=== PATIENT | female | born 1985 | race Hispanic/Latino ===

== ENCOUNTER 2022-01-03 09:34 | Emergency (ER) | payer OTHER, SELFPAY ==
[2022-01-03] MEDS ORDERED: Bacitracin 1 PK ONE (10:39)
== END 2022-01-03 10:58 | disposition home or self-care (01) ==
LOC: ERS 09:34
DX: T22.211A Burn of second degree of right forearm, initial encounter (principal); T31.0 Burns involving less than 10% of body surface; X11.0XXA Contact with hot water in bath or tub, initial encounter; Y92.89 Other specified places as the place of occurrence of the external cause; Y99.0 Civilian activity done for income or pay
CPT/HCPCS: 16020